=== PATIENT | female | born 1985 | race Caucasian/White ===

== ENCOUNTER → 2021-02-09 04:02 | Outpatient (CLI) | payer OTHER, SELFPAY ==
[2021-02-09 19:03] LABS: SARS-CoV-2 RNA PCR Negative
== END ==
PROVIDERS: Visit Provider Surgery Plastic and Reconstructive Surgery
DX: Z01.812 Encounter for preprocedural laboratory examination (principal); Z20.822 Contact with and (suspected) exposure to COVID-19
CPT/HCPCS: C9803; U0003; U0005

== ENCOUNTER 2021-02-12 01:36 | Day surgery (SDC) | payer OTHER, SELFPAY ==
[2021-01-29 10:13] VITALS: BMI 21.9
[2021-02-12 13:20] VITALS: BP 109/61; PULSE 73; RESP 16; TEMP 36.4; O2SAT 98
[2021-02-12] MEDS: LACTATED RINGERS 1,000 ML 30 ML IV CONT ×2 (14:00→16:11)
--- NOTE | 2021-02-12 14:03 | WPDANESEPPF ---
Anes - Initial Pre Proc Eval Procedure: Operation Date: 02/12/21 15:00 Proposed Procedures p Bilateral Breast Augmentation - Cristo Orlando MD Date/Time: 02/12/21 14:03 Surgeon: Cristo Orlando MD Pre Op Diagnosis: Micromastia Patient Data Age: 35 Gender: F Height: 5 ft 4 in Weight: 58 kg Allergies Allergy/AdvReac Type Severity Reaction Status Date / Time amoxicillin AdvReac Mild Itching as Verified 02/12/21 13:48 child Home Medications Medication Instructions Recorded Confirmed Type docusate sodium 100 mg capsule 100 mg PO DAILY #14 cap 01/26/21 01/29/21 Rx promethazine 12.5 mg tablet 12.5 mg PO TID #21 tablet 01/27/21 01/29/21 Rx carisoprodol 350 mg tablet 350 mg PO TID PRN #21 tablet 01/28/21 01/29/21 Rx oxycodone-acetaminophen 5 mg-325 1 tablet PO Q6H PRN #15 tablet 01/28/21 01/29/21 Rx mg tablet Patient hx anesthesia problems: none Family hx anesthesia problems: none PMFSH Past Medical History Medical History Anxiety Surgical History Surgical History History of Social History Social History Years smoked: 4 Smoking status: Former smoker Tobacco type: cigarettes Second hand tobacco smoke exposure: Yes Smoking end date: 11/06/05 Alcohol intake: current Drinks per week: 2 Substance use: never Substance use type: does not use Living arrangements: with family Spiritual care concerns: No Anes - Eval Final PreProcedure Day of Procedure 02/12/21 14:03 Patient weight: normal Heart: regular rate and rhythm Lungs: clear to auscultation Airway: Mallampati scale class 1 Neurological: alert and oriented Last oral intake: >/= 8 hours ASA classification: II Emergent: no Anesthetic plan: proceed Anesthesia type and monitoring: general LMA and standard monitoring Other findings: TIVA Informed Consent: The patient's anesthetic plan and its attendant risks and benefits were discussed with the patient/family/POA. Questions were solicited and answers provided to the satisfaction of the patient/family/POA.
[2021-02-12] MEDS: SCOPOLAMINE 1.5 MG PATCH TRANSDERM (14:26)
--- NOTE | 2021-02-12 14:27 | WPDHPUPDATE1 ---
History and Physical Update Update Date/Time: 02/12/21 14:27 History and Physical has been reviewed, including an updated exam of the patient. There are NO changes in the patient's condition. Risks, benefits, and alternatives have been discussed and questions answered. Patient agrees to proceed with procedure.
--- NOTE | 2021-02-12 14:51 | PM.PROC ---
Procedure Note - Detailed Date of procedure: 02/12/21 Pre-op diagnosis: Micromastia Post-op diagnosis: same Procedure performed: Bilateral augmentation mammoplasty Description of procedure: She is here today for bilateral breast augmentation. Previously and again today the risks, benefits, alternatives were discussed in extensive detail. I wanted her to be very realistic about the risks involved as well as expectations. We discussed aftercare and what to monitor for. She understands all those in history of her breast. She may need a second-stage mastopexy at her expense. She understands and she would like proceed in a 2 stage procedure. Made sure answered all of her questions to her satisfaction today and consent was obtained. They voice understanding. Marked in the preoperative holding area with their verification. The patient was taken to the operating room placed supine on the operating table. Anesthesia was provided by anesthesiology. A surgical time-out was taken. We cleansed the skin and 1% lidocaine and 0.25% Marcaine with epinephrine was used anesthetize as a field block. She was prepped and draped in a standard sterile fashion. Tegaderm nipple Harvey were placed. A 15 blade used to make an incision along the inframammary fold. Dissection was continued at 45 degree angle until the chest wall as identified. I elevated just above the pectoralis major a dual plane 3 fashion. I incised the pectoralis major along its inferior border and completely released the inferior border leaving the medial border intact. I created a subpectoral pocket in the appropriate dimensions based on our preoperative planning for the implant. I then copiously irrigated with saline solution and verified a strict hemostasis. Next the use a triple antibiotic and Betadine containing solution to irrigate the pocket. I washed my gloves with the triple antibiotic and Betadine solution. We washed the implant immediately upon opening it with this solution and only opened it when we needed it. I used implant funnel and no-touch technique. The implant was introduced into the pocket using the funnel. Having verified positioning of the implant this was closed using 2-0 Vicryl followed by 3-0 Monocryl in a running subcuticular 4-0 Monocryl followed by tissue glue. Fluffs, Rafita wrap, and surgical bra were placed. Patient was awoke and taken to PACU without difficulty. All instrument sponge counts were correct at the end of the case. Surgeon: Cristo Orlando MD Estimated blood loss (mL): 10 Drains: No Packing: No Pathology: none sent Complications: No immediate complications Condition: stable Disposition: PACU Findings: Bilateral dual plane 3 augmentation mammaplasty through IMF approach Bilateral Natrelle Inspira SoftTouch Implants 360cc Right: REF# [id number] Left: REF# [id number]
[2021-02-12] MEDS: ceFAZolin 2 GM/D5W 50 ML 2 GM/50 ML BAG IVPB (15:17)
[2021-02-12] MEDS: LIDO 1%/EPINEPHRINE 1:100,000 50 ML VIAL 60 ML INFILTRATE (15:42)
[2021-02-12 16:11] VITALS: BP 124/68; PULSE 105; RESP 13; TEMP 36.2; O2SAT 100
[2021-02-12 16:25] VITALS: BP 130/75; PULSE 86; RESP 12; O2SAT 99
[2021-02-12 16:40] VITALS: BP 128/78; PULSE 81; RESP 12; O2SAT 100
[2021-02-12 17:04] VITALS: BP 133/81; PULSE 95
[2021-02-12] MEDS: ACETAMINOPHEN 325 MG TABLET 650 MG PO (17:31)
[2021-02-12 17:35] VITALS: BP 126/81; PULSE 81
== END 2021-02-12 17:53 | disposition home or self-care (01) ==
PROVIDERS: Visit Provider Surgery Plastic and Reconstructive Surgery
PROC: (CPT 19325; principal; 2021-02-12 15:00)
DX: Z41.1 Encounter for cosmetic surgery (principal); N64.82 Hypoplasia of breast; F41.9 Anxiety disorder, unspecified; Z87.891 Personal history of nicotine dependence
CPT/HCPCS: 19325; A9270; J0690; J1100; J1580; J2250; J2405; J2704; J3010; J7120